=== PATIENT | female | born 2000 | race Caucasian/White ===

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

== ENCOUNTER 2018-04-26 16:37 | Emergency (ER) | payer OTHER, MEDICAID ==
[2018-04-26 17:31] VITALS: BP 131/72
--- NOTE | 2018-04-26 18:03 | UC ---
Throat Pain/Nasal Osmani HPI - HPI Summary HPI Summary: 17 year old female presents with mother reporting 4 day history of fever, malaise, headache, bilateral ear fullness, nasal congestion, nasal drainage, ringing in her ears, and sore throat. Denies ear drainage, dysphagia, cough, chest pain, shortness of breath, abdominal pain, nausea, vomiting, or diarrhea. - History of Current Complaint Chief Complaint: UCRespiratory Stated Complaint: ST,HEADACHE,RINGING EARS Time Seen by Provider: 04/26/18 17:30 Hx Obtained From: Patient Hx Last Menstrual Period: IUD Pain Intensity: 8 - Allergies/Home Medications Allergies/Adverse Reactions: Allergies Allergy/AdvReac Type Severity Reaction Status Date / Time bee venom protein (honey bee) Allergy Swelling Verified 04/26/18 17:28 PMH/Surg Hx/FS Hx/Imm Hx Previously Healthy: Yes - Denies significant PMH - Surgical History Surgical History: None - Family History Known Family History: Positive: Other - grandfather with lung cancer - Social History Occupation: Student Lives: With Family Alcohol Use: None Substance Use Type: None Smoking Status (MU): Never Smoked Tobacco - Immunization History Vaccination Up to Date: Yes Review of Systems All Other Systems Reviewed And Are Negative: Yes Constitutional: Positive: Fever, Chills, Fatigue Skin: Negative: Rash Eyes: Negative: Drainage, Eye Redness ENT: Positive: Sore Throat, Ear Ache, Nasal Discharge, Sinus Congestion. Negative: Sinus Pain/Tenderness Respiratory: Negative: Shortness Of Breath, Cough Cardiovascular: Negative: Chest Pain Gastrointestinal: Negative: Abdominal Pain, Vomiting, Diarrhea, Nausea Genitourinary: Negative: Dysuria, Frequency, Urgency Is Patient Immunocompromised?: No Physical Exam - Summary Physical Exam Summary: GENERAL APPEARANCE: Well developed, well nourished, alert and cooperative, and appears to be in no acute distress. EYES: Conjunctiva clear. No discharge. Vision is grossly intact. EARS: External auditory canals and tympanic membranes clear, hearing grossly intact. NOSE: Mild nasal congestion. No nasal discharge. THROAT: Mild pharyngeal erythema. Tonsils 2+ without exudate. Oral cavity normal. Teeth and gingiva in good general condition. NECK: Neck supple, non-tender. Anterior cervical lymphadenopathy. CARDIAC: Normal S1 and S2. No S3, S4 or murmurs. Rhythm is regular. There is no peripheral edema, cyanosis or pallor. Extremities are warm and well perfused. Capillary refill is less than 2 seconds. LUNGS: Clear to auscultation and percussion without rales, rhonchi, wheezing or diminished breath sounds. ABDOMEN: Positive bowel sounds. Soft, nondistended, nontender. No guarding or rebound. No masses or hepatosplenomegally. SKIN: Skin normal color, texture and turgor with no lesions or eruptions. Triage Information Reviewed: Yes Vital Signs: Initial Vital Signs Temp 100.4 F 04/26/18 17:29 Pulse 99 04/26/18 17:29 Resp 16 04/26/18 17:29 BP 131/72 04/26/18 17:29 Pulse Ox 100 04/26/18 17:29 Vital Signs Reviewed: Yes Diagnostics - Laboratory Diagnostic Studies Completed/Ordered: Rapid strep negative. Throat Pain/Nasal Course/Dx - Course Course Of Treatment: 17 year old female presents with mother reporting 4 day history of fever, malaise, headache, bilateral ear fullness, nasal congestion, nasal drainage, ringing in her ears, and sore throat. Denies ear drainage, dysphagia, cough, chest pain, shortness of breath, abdominal pain, nausea, vomiting, or diarrhea. Mildly elevated temperature of 100.4 F otherwise VSS. Exam revealed some nasal congestion, mild pharyngeal erythema, 2+ tonsils without exudate, and anterior cervical lymphadenpathy. Rapid strep negative. Recommend symptomatic treatment for viral URI although cannot rule out possible influenza. Influenza testing deferred due to duration of symptoms. Patient is to follow up with PCP in 5-7 days if symptoms persist. Warning symptoms were reviewed with patient. Verbalizes understanding and agrees with POC. - Differential Dx/Diagnosis Differential Diagnosis/HQI/PQRI: Influenza, Mononucleosis, Otitis Media, Pharyngitis, Tonsillitis, URI Provider Diagnosis: Viral URI with cough Discharge - Sign-Out/Discharge Documenting (check all that apply): Patient Departure All imaging exams completed and their final reports reviewed: No Studies - Discharge Plan Condition: Stable Disposition: HOME Prescriptions: Benzonatate CAP* [Tessalon 100 MG CAP*] 100 mg PO TID PRN #30 cap PRN Reason: Cough Patient Education Materials: Upper Respiratory Infection (ED) Referrals: No Primary Care Phys,NOPCP [Primary Care Provider] - Additional Instructions: Your history and exam are consistent with a viral upper respiratory infection. Viral infections do not respond to antibiotics and are limited to the treatment of symptoms. Viral infections typically run their course in 7-10 days. Drink plenty of fluids to avoid dehydration especially if you are running any fever. Use a saline rinse kit such as Neti Pot or NeilMed at least twice a day to help thin secretions and promote drainage of the sinuses. Use fluticasone (Flonase) nasal spray 2 sprays each nostril once daily. Take over the counter acetaminophen (Tylenol) or ibuprofen (Advil, Motrin) according to directions as needed for pain or fever. Use salt water gargles several times a day if you have a sore throat. You may also use Chloraseptic spray or Cepacol lonzenges according to directions which contain a numbing medication and can provide some temporary relief from your sore throat. Use Tessalon Perles 1 cap every 8 hours as needed for cough. Follow up with your primary care provider in 5-7 days if symptoms persist. Seek immediate medical attention in the emergency room if you have fever greater than 100.5 F despite taking acetaminophen or ibuprofen, have chest pain , difficulty breathing, are unable to swallow, or have any worsening of symptoms. - Billing Disposition and Condition Condition: STABLE Disposition: Home
== END 2018-04-26 18:08 | disposition home or self-care (01) ==
LOC: UCCORT 16:37
DX: J06.9 Acute upper respiratory infection, unspecified (principal); R05 Cough; Z91.030 Bee allergy status
CPT/HCPCS: 87651; 99212; G0463

== ENCOUNTER 2018-04-30 12:30 | Emergency (ER) | payer OTHER, MEDICAID ==
[2018-04-30 13:29] VITALS: BP 128/61
--- NOTE | 2018-04-30 14:49 | UC ---
Throat Pain/Nasal Osmani HPI - HPI Summary HPI Summary: Patient seen here 4 days ago complaining of URI symptoms and sore throat. Rapid strep was negative and patient was diagnosed with viral illness and treated with cough medicine. Patient states that since then her sore throat has become much worse. She is having a hard time swallowing due to pain and sensation of swelling in the back of her throat. She has low-grade fever and extreme fatigue. Not much cough. No respiratory difficulty. - History of Current Complaint Chief Complaint: UCGeneralIllness Stated Complaint: FACIAL SWELLING Time Seen by Provider: 04/30/18 14:36 Hx Obtained From: Patient, Family/Money Counter - MOM Hx Last Menstrual Period: IUD Onset/Duration: Gradual Onset, Lasting Days, Still Present Severity: Moderate Pain Intensity: 7 Pain Scale Used: 0-10 Numeric Cough: None Associated Signs & Symptoms: Positive: Fever - Allergies/Home Medications Allergies/Adverse Reactions: Allergies Allergy/AdvReac Type Severity Reaction Status Date / Time bee venom protein (honey bee) Allergy Swelling Verified 04/30/18 13:29 PMH/Surg Hx/FS Hx/Imm Hx Psychological History: Anxiety - Surgical History Surgical History: None - Family History Known Family History: Positive: Other - grandfather with lung cancer Negative: Diabetes - Social History Alcohol Use: None Substance Use Type: None Smoking Status (MU): Never Smoked Tobacco - Immunization History Vaccination Up to Date: Yes Review of Systems All Other Systems Reviewed And Are Negative: Yes Constitutional: Positive: Fever, Fatigue ENT: Positive: Sore Throat Respiratory: Positive: Negative Cardiovascular: Positive: Negative Gastrointestinal: Positive: Negative Physical Exam Triage Information Reviewed: Yes Appearance: Well-Appearing, No Pain Distress, Well-Nourished Vital Signs: Initial Vital Signs Temp 99.4 F 04/30/18 13:25 Pulse 83 04/30/18 13:25 Resp 18 04/30/18 13:25 BP 128/61 04/30/18 13:25 Pulse Ox 100 04/30/18 13:25 Laboratory Tests 04/30/18 14:52 Group A Strep Rapid Negative Vital Signs Reviewed: Yes Eyes: Positive: Conjunctiva Clear ENT: Positive: Hearing grossly normal, Pharyngeal erythema, TMs normal, Tonsillar swelling, Tonsillar exudate, Muffled voice Neck: Positive: Supple, Tenderness @ - SPFL CERVICAL TENDER LAD, Enlarged Nodes @ - SPFL CERVICAL TENDER LAD Respiratory Exam: Normal Cardiovascular Exam: Normal Abdomen Description: Positive: Soft Musculoskeletal: Positive: No Edema Neurological: Positive: Alert Psychological: Positive: Age Appropriate Behavior Skin: Negative: Rashes Throat Pain/Nasal Course/Dx - Course Assessment/Plan: Strep negative again. Suspect infectious mononucleosis. CBC and Monospot drawn today. Magic mouthwash and prednisone given to help with discomfort. Patient advised to take ibuprofen as needed as well. Stay well hydrated and rested. Seek follow-up if not improving as expected over the next few weeks. - Differential Dx/Diagnosis Provider Diagnosis: Acute tonsillitis Discharge - Sign-Out/Discharge Documenting (check all that apply): Patient Departure All imaging exams completed and their final reports reviewed: No Studies - Discharge Plan Condition: Stable Disposition: HOME Prescriptions: Magic Mouth Was-TERRI/MAAL/LIDO* 5 - 10 ml SWISH SWAL QID PRN #150 ml PRN Reason: Sore Throat predniSONE TAB* [Deltasone 20 MG TAB*] 40 mg PO DAILY #10 tab Patient Education Materials: Mononucleosis (ED), Tonsillitis (ED) Referrals: [facility] [Provider Group] - If Needed Additional Instructions: STREP TEST AGAIN NEGATIVE. YOUR SYMPTOMS ARE LIKELY VIRALLY MEDIATED AND SHOULD RESOLVE ON THEIR OWN WITH TIME. I SUSPECT MONONUCLEOSIS. NO INDICATION FOR ANTIBIOTICS AT PRESENT. REST, HYDRATE, OTC MEDS NEEDED. WILL TREAT WITH PREDNISONE TO HELP WITH THROAT INFLAMMATION AND MAGIC MOUTHWASH FOR DISCOMFORT. ALSO CAN TAKE 600MG IBUPROFEN EVERY 6 HRS NEEDED FOR PAIN. SEEK FOLLOW-UP IF YOU ARE NOT IMPROVING OVER THE NEXT FEW WEEKS. - Billing Disposition and Condition Condition: STABLE Disposition: Home
[2018-05-01 13:38] LABS: ABS Basophils 0 10^3/ul (0-0.2); ABS Eosinophils 0 10^3/ul (0-0.6); ABS Lymphocytes 1.1 10^3/ul (1.0-4.8); ABS Monocytes 0.6 10^3/ul (0-0.8); ABS Neutrophils 7.2 10^3/ul (1.5-7.7); ABS Nucleated RBC 0 10^3/ul; Eosinophil % 0.3 %; Hematocrit 39 % (35-47); Hemoglobin 12.7 g/dl (12.0-16.0); Lymphocyte % 12.4 %; Mean Corpuscular HGB Conc 33 g/dl (31-36); Mean Corpuscular Hemoglobin 26 pg (27-31); Mean Corpuscular Volume 79 fL (80-97); Mean Platelet Volume 8.3 fL (7.4-10.4); Nucleated Red Blood Cells % 0; Platelet Count 197 10^3/ul (150-450); Red Blood Count 4.95 10^6/ul (4.00-5.40); Red Cell Distribution Width 13 % (10.5-15)
--- NOTE | 2018-05-02 06:59 | UC ---
- Progress Note Progress Note: please notify pt of (+) monospot Course/Dx - Diagnoses Provider Diagnoses: Acute tonsillitis Discharge - Sign-Out/Discharge Documenting (check all that apply): Post-Discharge Follow Up All imaging exams completed and their final reports reviewed: No Studies - Discharge Plan Condition: Stable Disposition: HOME Prescriptions: Magic Mouth Was-TERRI/MAAL/LIDO* 5 - 10 ml SWISH SWAL QID PRN #150 ml PRN Reason: Sore Throat predniSONE TAB* [Deltasone 20 MG TAB*] 40 mg PO DAILY #10 tab Patient Education Materials: Mononucleosis (ED), Tonsillitis (ED) Referrals: [facility] [Provider Group] - If Needed Additional Instructions: STREP TEST AGAIN NEGATIVE. YOUR SYMPTOMS ARE LIKELY VIRALLY MEDIATED AND SHOULD RESOLVE ON THEIR OWN WITH TIME. I SUSPECT MONONUCLEOSIS. NO INDICATION FOR ANTIBIOTICS AT PRESENT. REST, HYDRATE, OTC MEDS NEEDED. WILL TREAT WITH PREDNISONE TO HELP WITH THROAT INFLAMMATION AND MAGIC MOUTHWASH FOR DISCOMFORT. ALSO CAN TAKE 600MG IBUPROFEN EVERY 6 HRS NEEDED FOR PAIN. SEEK FOLLOW-UP IF YOU ARE NOT IMPROVING OVER THE NEXT FEW WEEKS. - Billing Disposition and Condition Condition: STABLE Disposition: Home
== END 2018-04-30 15:38 | disposition home or self-care (01) ==
LOC: UCCORT 12:30
DX: J03.90 Acute tonsillitis, unspecified (principal)
CPT/HCPCS: 36415; 85025; 86308; 87651; 99212; G0463

== ENCOUNTER 2018-06-03 10:01 | Emergency (ER) | payer OTHER, MEDICAID ==
[2018-06-03 11:25] VITALS: BP 119/68
--- NOTE | 2018-06-03 12:17 | UC ---
Skin Complaint HPI - HPI Summary HPI Summary: Pt c/o gradual onset of raised, tender and erythematous "bumps" upper buttocks. That began "a couple of days ago". - History of Current Complaint Chief Complaint: UCSkin Time Seen by Provider: 06/03/18 12:09 Stated Complaint: LOWER BACK SKIN CONCERN Hx Obtained From: Patient Hx Last Menstrual Period: unknown ?: No Onset/Duration: Gradual Onset, Lasting Days, Still Present Skin Exposure Onset/Duration: Days Ago Timing: Constant Onset Severity: Mild Current Severity: Moderate Pain Intensity: 3 Location: Discrete - upper buttocks, gluteal fold Character: Swelling, Pain, Redness, Raised Aggravating Factor(s): Touch Alleviating Factor(s): Nothing Associated Signs & Symptoms: Positive: Tenderness - Allergy/Home Medications Allergies/Adverse Reactions: Allergies Allergy/AdvReac Type Severity Reaction Status Date / Time bee venom protein (honey bee) Allergy Swelling Verified 06/03/18 11:19 Home Medications: Home Medications Ibuprofen TAB* [Advil TAB*] 800 mg PO Q6H PRN 06/03/18 [History Confirmed ] PMH/Surg Hx/FS Hx/Imm Hx Previously Healthy: Yes - Surgical History Surgical History: None - Family History Known Family History: Positive: Other - grandfather with lung cancer Negative: Diabetes - Social History Occupation: Student Lives: With Family Alcohol Use: None Substance Use Type: None Smoking Status (MU): Never Smoked Tobacco Have You Smoked in the Last Year: No - Immunization History Vaccination Up to Date: Yes Review of Systems All Other Systems Reviewed And Are Negative: Yes Constitutional: Positive: Negative Skin: Positive: Other - erythema, raised Eyes: Positive: Negative ENT: Positive: Negative Respiratory: Positive: Negative Cardiovascular: Positive: Negative Gastrointestinal: Positive: Negative Genitourinary: Positive: Negative Motor: Positive: Negative Neurovascular: Positive: Negative Musculoskeletal: Positive: Negative Neurological: Positive: Negative Psychological: Positive: Negative Is Patient Immunocompromised?: No Physical Exam Triage Information Reviewed: Yes Appearance: Well-Appearing Vital Signs: Initial Vital Signs Temp 98 F 06/03/18 11:20 Pulse 88 06/03/18 11:20 Resp 15 06/03/18 11:20 BP 119/68 06/03/18 11:20 Pulse Ox 98 06/03/18 11:20 Vital Signs Reviewed: Yes Eye Exam: Normal ENT Exam: Normal Dental Exam: Normal Neck exam: Normal Respiratory: Positive: No respiratory distress Musculoskeletal Exam: Normal Neurological Exam: Normal Psychological Exam: Normal Skin Exam: Other - non flucuant raised, erythematous areas one on right upper buttock/gluteal fold and another left side just distal to first neither were lanceable at time of visit Course/Dx - Differential Diagnoses - Skin Complaint Differential Diagnoses: Abscess, MRSA, Tinea - Diagnoses Provider Diagnosis: Pilonidal abscess of miah cleft, Pilonidal abscess Discharge - Sign-Out/Discharge Documenting (check all that apply): Patient Departure All imaging exams completed and their final reports reviewed: No Studies - Discharge Plan Condition: Stable Disposition: HOME Prescriptions: Cephalexin CAP* [Keflex 500 CAP*] 500 mg PO Q8H #21 cap Patient Education Materials: Pilonidal Cyst (ED), Warm Compress or Soak (ED) Referrals: [facility] [Outside] - If Needed Ilia Beard [Medical Doctor] - As Soon As Possible No Primary Care Phys,NOPCP [Primary Care Provider] - - Billing Disposition and Condition Condition: STABLE Disposition: Home - Attestation Statements Provider Attestation: Per institutional requirements, I have reviewed the chart, however, I was not consulted specifically or made aware of this patient by the midlevel provider. I did not personally evaluate, interact with , or disposition this patient.
== END 2018-06-03 12:25 | disposition home or self-care (01) ==
LOC: UCCORT 10:01
DX: L05.01 Pilonidal cyst with abscess (principal); Z91.030 Bee allergy status
CPT/HCPCS: 99211; G0463

== ENCOUNTER 2019-04-26 11:51 | Emergency (ER) | payer OTHER, MEDICAID ==
[2019-04-26 13:08] VITALS: BP 120/60
--- NOTE | 2019-04-26 13:25 | UC ---
Bite Injury/Animal HPI - HPI Summary HPI Summary: Patient is a 18yo female presenting with dog bite to R lower leg that occurred 2 days ago. Patient states is was her own dog who bit her, stating he "doesn't know how big he is and he got too rough while they were playing." States the dog is UTD on vaccines. She not one puncture wound that "has already started healing." Denies any bleeding since it happened. Denies any drainage. Does note some swelling and bruising. States bruising worsened the second day. Denies difficulty walking. States "only hurts when touched." States she is UTD on tetanus. Denies fever and chills. Denies n/v. Patient states she "thinks it's healing but wanted to get it looked at before she leaves on vacation to make sure there is no infection." She does state that she cleaned the wound as soon as it happened and has been applying antibiotic ointment and dressings daily. - History of Current Complaint Chief Complaint: UCBiteInjury Stated Complaint: DOG BITE,RIGHT KNEE Hx Obtained From: Patient Hx Last Menstrual Period: 03/27/19 Severity Initially: Moderate Pain Intensity: 5 Pain Scale Used: 0-10 Numeric - Allergies/Home Medications Allergies/Adverse Reactions: Allergies Allergy/AdvReac Type Severity Reaction Status Date / Time bee venom protein (honey bee) Allergy Swelling Verified 04/26/19 13:02 latex Allergy Rash Verified 04/26/19 13:02 PMH/Surg Hx/FS Hx/Imm Hx Previously Healthy: Yes - Surgical History Surgical History: None - Family History Known Family History: Positive: Other - grandfather with lung cancer, Non- Contributory Negative: Diabetes - Social History Alcohol Use: None Substance Use Type: None Smoking Status (MU): Never Smoked Tobacco Have You Smoked in the Last Year: No - Immunization History Vaccination Up to Date: Yes Review of Systems All Other Systems Reviewed And Are Negative: Yes Constitutional: Positive: Negative. Negative: Fever, Chills Skin: Positive: Bruising - R lower leg from dog bite, Other - puncture wound on R lower leg, nonbleeding/nondraining Respiratory: Positive: Negative Cardiovascular: Positive: Negative Gastrointestinal: Positive: Negative. Negative: Vomiting, Nausea Musculoskeletal: Positive: Edema - swelling of dog bite on R lower leg. Negative: Arthralgia, Decreased ROM Neurological: Negative: Paresthesia, Numbness Physical Exam Triage Information Reviewed: Yes Appearance: Well-Appearing, No Pain Distress, Well-Nourished Vital Signs: Initial Vital Signs Temp 97.4 F 04/26/19 13:03 Pulse 73 04/26/19 13:03 Resp 16 04/26/19 13:03 BP 120/60 04/26/19 13:03 Pulse Ox 100 04/26/19 13:03 Vital Signs Reviewed: Yes Eyes: Positive: Conjunctiva Clear ENT: Positive: Hearing grossly normal Neck: Positive: Supple Respiratory Exam: Normal Respiratory: Positive: Lungs clear, Normal breath sounds, No respiratory distress Cardiovascular Exam: Normal Cardiovascular: Positive: RRR, Pulses Normal - strong DP/PT, Brisk Capillary Refill - <2 sec. Negative: Distal Pulses Weak, Distal Pulses Absent Musculoskeletal: Positive: Strength Intact, ROM Intact - full and equal R lower leg flexion and extension b/l, Edema @ - Proximal medial tibia surrounded puncture wound Neurological Exam: Other - sensation grossly intact Neurological: Positive: Alert Psychological: Positive: Age Appropriate Behavior Skin: Positive: Other - ~2cm healing skin laceration noted on proximal medial tibia with surrounding ecchymosis ~10cm in circumference. No fluctuance or drainage. no erythema. mild tenderness with palpation. non bleeding. Bite Injury Course/Dx - Course Course Of Treatment: Small healing puncture wound of right lower extremity. No s/s of infection. I treated patient with Augmentin to prevent infection. Patient up-to-date on tetanus and her dog is up-to-date on vaccinations as well. Educated on wound care and instructed to follow up with PCP with her scheduled appointment next week for recheck of the wound. Educated on signs and symptoms of infection and instructed to go to ED if any occur. Patient voiced understanding and agreed with the treatment plan. - Differential Dx/Diagnosis Differential Diagnosis/HQI/PQRI: Puncture Provider Diagnosis: Dog bite of right lower leg, Contusion of right lower leg Discharge ED - Sign-Out/Discharge Documenting (check all that apply): Patient Departure All imaging exams completed and their final reports reviewed: No Studies - Discharge Plan Condition: Stable Disposition: HOME Prescriptions: Amoxicillin/Clavulanate TAB* [Augmentin TAB 875*] 875 mg PO BID #10 tab Patient Education Materials: Animal Bite (ED) Referrals: Srinivasa Wing MD [Primary Care Provider] - 4 Days Additional Instructions: Take Augmentin as prescribed to prevent infection. Wash the area gently with soap and water daily. Follow up with your primary care provider for recheck of the wound next week at your scheduled appointment. Go to the emergency room if you experience fever, increasing redness and warmth to the area, drainage, or nausea and vomiting. - Billing Disposition and Condition Condition: STABLE Disposition: Home
== END 2019-04-26 13:52 | disposition home or self-care (01) ==
LOC: UCCORT 11:51
DX: S81.851A Open bite, right lower leg, initial encounter (principal); S80.11XA Contusion of right lower leg, initial encounter; Z91.030 Bee allergy status; Z91.040 Latex allergy status; Z80.1 Family history of malignant neoplasm of trachea, bronchus and lung; W54.0XXA Bitten by dog, initial encounter; Y92.9 Unspecified place or not applicable
CPT/HCPCS: 99212; G0463